=== PATIENT | male | born 1985 | race Caucasian/White ===

== ENCOUNTER 2018-06-22 21:47 | Emergency (ER) | payer MEDICAID ==
--- NOTE | 2018-06-22 22:39 | XRAY Report ---
Reason: injured ankle at 1430, swollen, px Procedure Date: 06/22/2018 Accession Number: [id number] / [id number] Procedure: XR - Ankle 3 View LT CPT Code: FULL RESULT: EXAM: LEFT ANKLE RADIOGRAPHY EXAM DATE: 06/22/2018 10:16 PM. CLINICAL HISTORY: Injured ankle at 1430, swollen, px. COMPARISON: None. TECHNIQUE: 3 views. FINDINGS: Bones: No fractures. There is a small medial tibial fibrous cortical defect. Joints: Normal. No effusion. No subluxations. The ankle mortise is normally aligned. Soft Tissues: Mild periarticular soft tissue swelling. IMPRESSION: No evidence of fracture or disruption of the ankle mortise. RADIA
--- NOTE | 2018-06-22 23:26 | ED Physician Documentation ---
PD HPI LOWER EXT INJURY - Stated complaint Stated Complaint: ANKLE INJURY - Chief complaint Chief Complaint: Trauma Ext - History obtained from History obtained from: Patient - History of Present Illness PD HPI LOW EXT INJURY LOCATION: Left, Ankle Type of injury: Twist Where injury occurred: Other (getting out of his truck) Timing - onset: Enter time (14:30), Today Timing - details: Abrupt onset Pain level max: 8 Pain level now: 5 Improved by: Rest, Ice Worsened by: Moving, Palpating Associated symptoms: Swelling. No: Weakness, Numbness Contributing factors: No: Anticoagulated, Prior ortho surgery, Prosthetic joint Similar symptoms before: Has not had sx before Recently seen: Not recently seen Review of Systems Skin: reports: Reviewed and negative Musculoskeletal: reports: Joint pain, Joint swelling, Pain with weight bearing Neurologic: denies: Focal weakness, Numbness PD PAST MEDICAL HISTORY - Past Medical History Past Medical History: Yes GI: GERD Derm: Other - Past Surgical History Past Surgical History: No - Present Medications Home Medications: Ambulatory Orders Medication Instructions Recorded Confirmed HYDROcod/ACETAM 5/325 [[place] 5/325] 1 - 2 ea PO Q6H PRN #15 tablet 06/22/18 - Allergies Allergies/Adverse Reactions: Allergies Allergy/AdvReac Type Severity Reaction Status Date / Time No Known Drug Allergies Allergy Verified 06/22/18 22:11 - Social History Does the pt smoke?: No Smoking Status: Never smoker Does the pt drink ETOH?: No Does the pt have substance abuse?: No - Immunizations Immunizations are current?: Yes - POLST Patient has POLST: No PD ED PE NORMAL - Vitals Vital signs reviewed: Yes - General General: Alert and oriented X 3, No acute distress (NAD at rest, but appears to be uncomfortable with movement or palpation of left ankle), Well developed/nourished - Neuro Neuro: No motor deficit, No sensory deficit PD ED PE EXPANDED - Extremities Extremities: Tenderness, Limited ROM, Swelling, Left ankle (lateral>medial) Results - Vitals Vitals: Vital Signs - 24 hr 06/22/18 06/22/18 22:07 23:58 Temperature 37.2 C 36.9 C Heart Rate 87 89 Respiratory 15 20 Rate Blood Pressure 113/69 112/90 H O2 Saturation 98 98 Oxygen O2 Source Room air - Rads (name of study) left ankle xrays Radiology: Prelim report reviewed, See rad report PD MEDICAL DECISION MAKING - ED course Complexity details: reviewed results, re-evaluated patient, considered differential, d/w patient Departure - Departure Disposition: Home, Self Care Clinical Impression: Ankle sprain Condition: Good Instructions: ED Sprain Ankle Follow-Up: Dann Alejo MD [Provider Admit Priv/Credential] - Within 1 week Prescriptions: HYDROcod/ACETAM 5/325 [[place] 5/325] 1 - 2 ea PO Q6H PRN #15 tablet PRN Reason: Pain Discharge Date/Time: 06/23/18 00:03
[2018-06-22] MEDS ORDERED: IBUPROFEN 600 MG TABLET PO STA (23:37)
[2018-06-22] MEDS ORDERED: HYDROcod/ACET 5/325 Prepack 4 PO STA (23:37)
[2018-06-22 23:59] VITALS: BP 112/90
== END 2018-06-23 00:03 | disposition home or self-care (01) ==
LOC: ED 21:47
DX: S93.402A Sprain of unspecified ligament of left ankle, initial encounter (principal); X50.1XXA Overexertion from prolonged static or awkward postures, initial encounter; W18.41XA Slipping, tripping and stumbling without falling due to stepping on object, initial encounter; Y93.89 Activity, other specified
CPT/HCPCS: 73610; 99283; A9270

== ENCOUNTER 2019-09-16 21:28 | Emergency (ER) | payer MEDICAID ==
[2019-09-16 21:38] VITALS: BP 136/101
--- NOTE | 2019-09-16 21:49 | ED Physician Documentation ---
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 No particular injury noted. Onset several days ago of pain in the anterior elbow. He was trying a tendinitis support over the proximal forearm. He did not notice improvement with that.). No: Fall, Twist Where injury occurred: Work Timing - onset: How many days ago (4) Timing - details: Gradual onset, Still present, Waxing and waning Worsened by: Moving (Pain with lifting and twisting with the arm. The pain is in the anterior elbow area. The worst pain is with flexion.) Associated symptoms: No: Weakness, Numbness, Tingling Contributing factors: Work related. No: Prior ortho surgery Similar symptoms before: Has not had sx before Recently seen: Not recently seen Review of Systems Constitutional: denies: Fever, Chills Skin: denies: Rash, Lesions Musculoskeletal: reports: Joint pain. denies: Joint swelling Neurologic: denies: Focal weakness, Numbness PD PAST MEDICAL HISTORY - Past Medical History Past Medical History: No Cardiovascular: None Respiratory: None Neuro: None Endocrine/Autoimmune: None GI: GERD : None HEENT: None Psych: None Musculoskeletal: None Derm: None - Past Surgical History Past Surgical History: No - Present Medications Home Medications: Ambulatory Orders Medication Instructions Recorded Confirmed HYDROcod/ACETAM 5/325 [[place] 5/325] 1 - 2 ea PO Q6H PRN #15 tablet 06/22/18 Hydrocodone/Acetaminophen [[place] 1 each PO Q6H PRN #15 tablet 09/16/19 5-325 Tablet] Tizanidine HCl 4 mg PO TID PRN #25 capsule 09/16/19 dexAMETHasone [Decadron] 4 mg PO DAILY #5 tablet 09/16/19 - Allergies Allergies/Adverse Reactions: Allergies Allergy/AdvReac Type Severity Reaction Status Date / Time No Known Drug Allergies Allergy Verified 09/16/19 21:38 - Social History Does the pt smoke?: Yes Smoking Status: Current every day smoker Does the pt drink ETOH?: Yes Does the pt have substance abuse?: Yes Substance Use and Type: Marijuana - Immunizations Immunizations are current?: No - POLST Patient has POLST: No PD ED PE NORMAL - Vitals Vital signs reviewed: Yes - General General: Alert and oriented X 3, No acute distress (guarding ROM of the left elbow, holding it in flexion in front of him. ), Well developed/nourished - Derm Derm: Normal color, Warm and dry, No rash - Extremities Extremities: Other (The left elbow shows tenderness in the anterior aspect at the lower biceps insertion site. There is no redness nor sores. Flexion at the elbow hurts the most but he is able to do it. Supination and pronation is not as painful. The epicondyles at the elbow are nontender.) - Neuro Neuro: Alert and oriented X 3, No motor deficit, No sensory deficit Results - Vitals Vitals: Vital Signs - 24 hr 09/16/19 21:34 Temperature 36.6 C Heart Rate 116 H Respiratory 18 Rate Blood Pressure 136/101 H O2 Saturation 96 Oxygen O2 Source Room air PD MEDICAL DECISION MAKING - ED course Complexity details: considered differential (seems like biceps tendonitis lower aspect. ), d/w patient Departure - Departure Disposition: Home, Self Care Clinical Impression: Biceps tendonitis on left Condition: Stable Record reviewed to determine appropriate education?: Yes Instructions: Biceps Tendonitis Distal Follow-Up: Chava Garcia MD [Provider Admit Priv/Credential] - Prescriptions: dexAMETHasone [Decadron] 4 mg PO DAILY #5 tablet Hydrocodone/Acetaminophen [[place] 5-325 Tablet] 1 each PO Q6H PRN #15 tablet PRN Reason: Pain Tizanidine HCl 4 mg PO TID PRN #25 capsule PRN Reason: Spasms Comments: Use a sling to protect motion of the elbow and rest it periodically through the day. You can use the tendinitis brace that you have but use it on the lower part of the upper arm as the muscle that seems bothered is the biceps muscle instead of the usual forearm muscle. Use some anti-inflammatories of ibuprofen 600 mg 2-3 times a day. Also Decadron steroid anti-inflammatory daily for 5 more days. You can use tizanidine muscle relaxant to help reduce stiffness and spasm of the muscle. To that add Tylenol or hydrocodone if needed for worse pains periodically. I would anticipate improvement of this over the next several days to week, returning to normal function over that timeframe. Recheck if not consistently better. Discharge Date/Time: 09/16/19 22:29
[2019-09-16] MEDS ORDERED: HYDROcod/ACET 5/325 Prepack 4 PO STA (22:07)
[2019-09-16] MEDS ORDERED: methocarbamoL 500 MG TABLET PO STA (22:07)
[2019-09-16] MEDS ORDERED: DEXAMETHASONE 10 MG/ML VIAL PO STA (22:07)
[2019-09-16] MEDS ORDERED: CHERRY SYRUP 10 ML UDC PO ONE (22:07)
== END 2019-09-16 22:29 | disposition home or self-care (01) ==
LOC: ED 21:28
DX: M75.22 Bicipital tendinitis, left shoulder (principal); F17.200 Nicotine dependence, unspecified, uncomplicated
CPT/HCPCS: 99283; A9270

== ENCOUNTER 2021-12-15 04:24 | Emergency (ER) | payer MEDICAID ==
[2021-12-15] MEDS ORDERED: MORPHINE 2 MG/ML CARPUJECT IVP STA ×2 (04:46→06:00)
[2021-12-15] MEDS ORDERED: SODIUM CHLORIDE 0.9% 1,000 ML IV STA (04:46)
[2021-12-15] MEDS ORDERED: ONDANSETRON 4 MG/2 ML VIAL IVP STA (04:46)
[2021-12-15 04:49] LABS: BASOPHILS % (AUTO) 0.4 %; EOSINOPHILS % (AUTO) 0.4 %; HGB - HEMOGLOBIN 15.7 g/dL (14.0-18.0); LYMPHOCYTES % (AUTO) 15.7 %; MEAN CORPUSCULAR HEMOGLOBIN 29.3 pg (27.0-31.0); MEAN CORPUSCULAR HGB CONC 34.9 g/dL (32.0-36.0); MEAN PLATELET VOLUME 10.7 fL (7.4-11.4); MONOCYTES % (AUTO) 9.7 %; NEUTROPHILS % (AUTO) 73.4 %; PLT - PLATELET COUNT 228 10^3/uL (130-450); RED BLOOD COUNT 5.36 10^6/uL (4.70-6.10); RED CELL DISTRIBUTION WIDTH 12.3 % (12.0-15.0); WHITE BLOOD COUNT 18.4 x10^3/uL (4.8-10.8)
[2021-12-15 04:50] LABS: ABNORMAL LYMPHS % (MANUAL) 0 %; BAND NEUTROPHILS % (MANUAL) 0 %
--- NOTE | 2021-12-15 04:54 | ED Physician Documentation ---
PD HPI ABD PAIN - Stated complaint Stated Complaint: ABD PX - Chief complaint Chief Complaint: Abd Pain - History obtained from History obtained from: Patient - Additional information Additional information: Patient is a 36-year-old male with no significant past medical history presenting for evaluation of sharp to dull epigastric pain starting around 7 PM. He denies eating anything that would have triggered this pain. Denies radiation to the pain. Nothing makes it better or worse. He has associated nausea but no vomiting. 1 loose stool. No dysuria, and hematuria. He denies fever, cough, chest pain, difficulty breathing.Denies a history of similar episodes. Denies significant recent alcohol intake. No previous abdominal surgeries. Review of Systems Constitutional: denies: Fever Nose: denies: Congestion Cardiac: denies: Chest pain / pressure, Palpitations GI: reports: Abdominal Pain, Nausea. denies: Vomiting, Diarrhea : denies: Dysuria Skin: denies: Rash Musculoskeletal: denies: Back pain Neurologic: denies: Headache PD PAST MEDICAL HISTORY - Past Medical History Past Medical History: Yes Cardiovascular: None Respiratory: None Neuro: None Endocrine/Autoimmune: None GI: GERD : None HEENT: None Psych: None Musculoskeletal: None Derm: None - Past Surgical History Past Surgical History: No - Present Medications Home Medications: Ambulatory Orders Medication Instructions Recorded Confirmed HYDROcod/ACETAM 5/325 [[place] 5/325] 1 - 2 ea PO Q6H PRN #15 tablet 06/22/18 Hydrocodone/Acetaminophen [[place] 1 each PO Q6H PRN #15 tablet 09/16/19 5-325 Tablet] Tizanidine HCl 4 mg PO TID PRN #25 capsule 09/16/19 dexAMETHasone [Decadron] 4 mg PO DAILY #5 tablet 09/16/19 Ondansetron Odt [Zofran] 4 mg TL Q6H PRN #10 tablet 12/15/21 Oxycodone HCl/Acetaminophen 1 each PO Q6H PRN #8 tablet 12/15/21 [Percocet 5-325 mg Tablet] - Allergies Allergies/Adverse Reactions: Allergies Allergy/AdvReac Type Severity Reaction Status Date / Time No Known Drug Allergies Allergy Verified 12/15/21 04:31 - Social History Does the pt smoke?: Yes Smoking Status: Current every day smoker Does the pt drink ETOH?: Yes Does the pt have substance abuse?: Yes - Immunizations Immunizations are current?: No - POLST Patient has POLST: No PD ED PE NORMAL - General General: Alert and oriented X 3, No acute distress, Well developed/nourished - HEENT HEENT: Atraumatic, Moist mucous membranes - Neck Neck: Supple, no meningeal sign - Cardiac Cardiac: RRR, No murmur, Strong equal pulses - Respiratory Respiratory: No respiratory distress, Clear bilaterally - Abdomen Abdomen: Normal bowel sounds, Soft, Non distended, Other (Epigastric tenderness) - Back Back: No CVA TTP - Derm Derm: Normal color - Extremities Extremities: No deformity, No edema - Neuro Neuro: Alert and oriented X 3, No motor deficit, Normal speech - Psych Psych: Normal mood, Normal affect Results - Vitals Vitals: Vital Signs - 24 hr 12/15/21 12/15/21 12/15/21 04:31 04:32 05:16 Temperature 36.7 C 3.7 C L 36.7 C Heart Rate 77 87 83 Respiratory 20 15 19 Rate Blood Pressure 172/100 H 149/97 H 128/86 H O2 Saturation 94 96 97 12/15/21 12/15/21 06:12 06:46 Temperature 36.7 C Heart Rate 66 66 Respiratory 17 17 Rate Blood Pressure 151/92 H 151/88 H O2 Saturation 93 95 Oxygen O2 Source Room air - EKG (time done) 0514 Rate: Rate (enter#) (66) Rhythm: NSR Intervals: No: Prolonged QT Ischemia: No: ST elevation c/w ischemia - Labs Labs: Laboratory Tests 12/15/21 12/15/21 04:35 04:35 WBC 18.4 H RBC 5.36 Hgb 15.7 Hct 45.0 MCV 84.0 MCH 29.3 MCHC 34.9 RDW 12.3 Plt Count 228 MPV 10.7 Neut # (Auto) Not Reportable Lymph # (Auto) Not Reportable [place] # (Auto) Not Reportable Eos # (Auto) Not Reportable Baso # (Auto) Not Reportable Absolute Nucleated RBC Not Reportable Total Counted 100 Band Neuts % (Manual) 0 Abnorm Lymph % (Manual) 0 Nucleated RBC % Not Reportable Neutrophils # (Manual) 13.4 H Lymphocytes # (Manual) 3.7 H Monocytes # (Manual) 1.3 H Eosinophils # (Manual) 0.0 Basophils # (Manual) 0.0 Differential Comment MANUAL DIFFERENTIAL WBC Morphology NORMAL APPEARANCE Platelet Estimate NORMAL (130-450,000) Platelet Morphology NORMAL APPEARANCE RBC Morph Micro Appear NORMAL APPEARANCE Sodium 142 Potassium 3.5 Chloride 102 Carbon Dioxide 26 Anion Gap 14.0 H BUN 20 Creatinine 0.8 Estimated GFR (MDRD) 109 Glucose 116 H Calcium 9.2 Total Bilirubin 0.6 AST 24 ALT 28 Alkaline Phosphatase 61 Total Protein 7.3 Albumin 4.3 Globulin 3.0 Albumin/Globulin Ratio 1.4 Lipase 29 PD MEDICAL DECISION MAKING - ED course Complexity details: reviewed results, d/w patient ED course: Patient with upper abdominal pain since last night. On arrival has epigastric tenderness with no radiation. Vital signs are stable. EKG is reassuring with no signs of acute ischemia and patient is without risk factors for ACS. Labs reviewed with findings of leukocytosis. CT scan was obtained and preliminary read is ileus versus enteritis. Reviewed these findings with the patient.Discussed treatment recommendations. He is able to tolerate p.o. fluids well in the emergency department. Therefore I do feel that he Is able to trial outpatient management. I encouraged continuing with clear liquids and maintaining activity as this will help his bowels restart. I reviewed strict return precautions for inability to tolerate liquids, increased pain, migration of pain or any other symptoms that are concerning. Patient is comfortable with this plan for discharge. Departure - Departure Disposition: 01 Home, Self Care Clinical Impression: Ileus Leukocytosis Qualifiers: Leukocytosis type: unspecified Qualified Code(s): D72.829 - Elevated white blo od cell count, unspecified Instructions: ED Diet Clear Liquid Prescriptions: Oxycodone HCl/Acetaminophen [Percocet 5-325 mg Tablet] 1 each PO Q6H PRN #8 tablet PRN Reason: pain Ondansetron Odt [Zofran] 4 mg TL Q6H PRN #10 tablet PRN Reason: Nausea / Vomiting Comments: Pete you were evaluated for upper abdominal pain. Your white blood cell count was slightly elevated which could be from an infection or inflammation. You had a CT scan done of your abdomen which showed something called an ileus.This means that your bowels are moving slowly which can cause pain and nausea or vomiting. Please start with a clear liquid diet this morning. It is important to stay hydrated and try to keep active as this will help with your bowels restart. You were able to keep water down while in the hospital so I think you are able to go home this morning. However if you are not able to keep down clear liquids due to increased pain Or vomiting, you should return to the emergency department for another evaluation.If it anytime you develop fever, chest pain, difficulty breathing, worsening pain, have any concerns please r eturn to the emergency department.I have sent medications for pain and nausea to the [facility] pharmacy in [place]. You should only use the narcotic medication for pain as needed and only sparingly as this may Continue to keep your bowel function sluggish/slow. You can also try plain Tylenol for pain. Discharge Date/Time: 12/15/21 07:17
[2021-12-15 04:57] LABS: ALBUMIN 4.3 g/dL (3.2-5.5); ALBUMIN/GLOBULIN RATIO 1.4 (1.0-2.2); BILIRUBIN,TOTAL 0.6 mg/dL (0.2-1.0); CALCIUM 9.2 mg/dL (8.5-10.3); CREATININE 0.8 mg/dL (0.6-1.2); POTASSIUM 3.5 mmol/L (3.5-5.0); TOTAL PROTEIN 7.3 g/dL (6.7-8.2)
[2021-12-15 05:06] LABS: DIFFERENTIAL COMMENT MANUAL DIFFERENTIAL; LYMPHOCYTES # (MANUAL) 3.7 10^3/uL (1.5-3.5); LYMPHOCYTES % (MANUAL) 20 %; MONOCYTES # (MANUAL) 1.3 10^3/uL (0.0-1.0); NEUTROPHILS # (MANUAL) 13.4 10^3/uL (1.5-6.6); PLATELET ESTIMATE, MANUAL NORMAL (130-450,000) (NORMAL); PLATELET MORPHOLOGY NORMAL APPEARANCE (NORMAL); RBC MORPHOLOGY (MULTIPLE) NORMAL APPEARANCE (NORMAL); WBC MORPHOLOGY (MULTIPLE) NORMAL APPEARANCE (NORMAL)
[2021-12-15] MEDS ORDERED: IOVERSOL 320 100 ML VIAL IVP ONE ×2 (05:27→06:02)
[2021-12-15 06:47] VITALS: BP 151/88
--- NOTE | 2021-12-15 08:12 | CT Report ---
PROCEDURE: Abdomen/Pelvis W INDICATIONS: upper abd pain CONTRAST: IV CONTRAST: Optiray 320 ml: 100 PO CONTRAST: *NO PO CONTRAST TECHNIQUE: After the administration of intravenous contrast, 5 mm thick sections acquired from the diaphragms to the symphysis. 5 mm thick coronal and sagittal reformats were acquired. For radiation dose reducti on, the following was used: automated exposure control, adjustment of mA and/or kV according to adriano ent size. COMPARISON: None. FINDINGS: Image quality: Excellent. ABDOMEN: Lung bases: Lung bases are clear. Heart size is normal. Solid organs: Liver and spleen are normal in size and enhancement. Gallbladder unremarkable Biliar y system is non dilated. Pancreas enhances normally. No adrenal nodules. Kidneys demonstrate linnette l size and enhancement, without hydronephrosis. Nonobstructing 4 mm calculus in the interpolar regio n of the right kidney. Peritoneum and bowel: There are a few fluid-filled and mildly dilated loops of small bowel in the lef t upper quadrant. Colonic diverticulosis. Bowel is otherwise normal. Appendix is not definitively vis ualized but there is no right lower quadrant inflammatory change. Nodes and vessels: No retroperitoneal or mesenteric adenopathy by size criteria. Aorta and inferior vena cava are normal in size. Miscellaneous: No ventral hernias. PELVIS: Genitourinary: Bladder wall thickness is normal. Miscellaneous: No inguinal hernias or adenopathy. Bones: No suspicious bony lesions. No vertebral body compression fractures. IMPRESSION: Few fluid-filled and mildly dilated loops of small bowel in the left upper quadrant may be secondary to enteritis or focal ileus. Obstruction is not strictly excluded but is considered unlikely. No acute finding otherwise. No significant change from preliminary report. Reviewed by: Silvino Lubin MD on 12/15/2021 8:10 AM PDT Approved by: Silvino uLbin MD on 12/15/2021 8:10 AM PDT Station ID: [id number]
== END 2021-12-15 07:17 | disposition home or self-care (01) ==
LOC: ED 04:24
DX: K56.7 Ileus, unspecified (principal); D72.829 Elevated white blood cell count, unspecified; F17.200 Nicotine dependence, unspecified, uncomplicated
CPT/HCPCS: 36415; 74177; 80053; 83690; 85025; 93005; 96374; 96375; 96376; 99284; Q9967

== ENCOUNTER 2022-02-15 11:24 | Emergency (ER) | payer MEDICAID ==
[2022-02-15 11:47] VITALS: BP 119/81
== END 2022-02-15 11:55 | disposition left against medical advice (07) ==
LOC: ED 11:24
DX: Z53.21 Procedure and treatment not carried out due to patient leaving prior to being seen by health care provider (principal)

== ENCOUNTER 2022-05-25 08:00 | Outpatient (CLI) | payer MEDICAID ==
--- NOTE | 2022-05-25 12:33 | XRAY Report ---
PROCEDURE: Shoulder 3 View BILAT INDICATIONS: BILAT SHOULDER PAIN TECHNIQUE: 4 views of the shoulder were acquired. COMPARISON: None. FINDINGS: Bones: No fractures or dislocations. . No suspicious bony lesions. Visualized ribs appear intact. Soft tissues: No suspicious soft tissue calcifications. IMPRESSION: Mild bilateral acromioclavicular joint osteoarthritis. No fracture or dislocation. No gr oss soft tissue abnormalities. Reviewed by: Tim Mcgrath MD on 05/25/2022 12:31 PM PDT Approved by: Tim Mcgrath MD on 05/25/2022 12:31 PM PDT Station ID: [id number]
== END 2022-05-25 23:59 | disposition home or self-care (01) ==
LOC: DI.WOS 08:00
PROVIDERS: ATTEND Physician Assistant Surgical
DX: M19.011 Primary osteoarthritis, right shoulder (principal); M19.012 Primary osteoarthritis, left shoulder

== ENCOUNTER 2023-08-02 13:15 | Outpatient (CLI) | payer MEDICAID ==
--- NOTE | 2023-08-02 15:18 | XRAY Report ---
PROCEDURE: Elbow 3 View LT INDICATIONS: PAIN IN LEFT ELBOW TECHNIQUE: 3 views of the elbow were acquired. COMPARISON: None. FINDINGS: Bones: No fractures or dislocations. No suspicious bony lesions. Soft tissues: No effusion. No suspicious soft tissue calcifications or masses. IMPRESSION: No acute bony abnormality. Reviewed by: Joanne Araujo MD on 08/02/2023 3:17 PM [facility] Approved by: Joanne Araujo MD on 08/02/2023 3:17 PM [facility] Station ID: [id number]
== END 2023-08-02 13:30 | disposition home or self-care (01) ==
LOC: DI.N 13:15
PROVIDERS: ATTEND Physician Assistant Medical
DX: M25.522 Pain in left elbow (principal)